=== PATIENT | female | born 1995 | race Caucasian/White ===

== ENCOUNTER 2017-05-09 22:43 | Emergency (ER) | payer SELFPAY ==
[~2017-05-09] VITALS: Ht 154.9 cm; Wt 45.4 kg
[~2017-05-09 22:43] MED LIST: PREN-385 PO
[2017-05-09 23:00] VITALS: BP 106/58
--- NOTE | 2017-05-09 23:31 | NUR ---
TO ER OF2
--- NOTE | 2017-05-10 | NUR ---
22Y/F PT. PRESENTS TO ED WITH C/O RT. ANKLE PAIN X 1 MONTH. PT. STATES PAIN AFTER GOT HIT WHILE PLAYING [employer]CC[employer]. NO MEDICAL HX. AAO X4, AMBULATORY WITH STEADY GAIT. RESPIRATIONS ROOM AIR, EVEN AND UNLABORED. SKIN WARM AND DRY. VSS, C/O PAIN 05/27. ER MD MADE AWARE OF PT. STATUS.
--- NOTE | 2017-05-10 01:30 | NUR ---
Patient being evaluated by DR. SOLIS at bedside.
--- NOTE | 2017-05-10 01:45 | NUR ---
Patient discharged with v/s stable. Written and verbal after care instructions given and explained. Patient alert, oriented and verbalized understanding of instructions. Ambulatory with steady gait. All questions addressed prior to discharge. ID band removed. Patient advised to follow up with PMD. Rx of MOTRIN 800 MG given. Patient educated on indication of medication including possible reaction and side effects. Opportunity to ask questions provided and answered.
[2017-05-10 01:51] VITALS: BP 106/58
== END 2017-05-10 01:45 | disposition home or self-care (01) ==
LOC: MED 22:43
DX: S93.401A Sprain of unspecified ligament of right ankle, initial encounter (principal); X58.XXXA Exposure to other specified factors, initial encounter; Y93.66 Activity, soccer; Y92.89 Other specified places as the place of occurrence of the external cause; Y99.8 Other external cause status
CPT/HCPCS: 73610; 99284